=== PATIENT | male | born 1940 | race Caucasian/White ===

== ENCOUNTER 2017-12-13 14:04 | Emergency (ER) | payer OTHER, MEDICARE ==
[~2017-12-13] VITALS: Ht 182.9 cm; Wt 88.5 kg
[~2017-12-13 14:04] MED LIST: ATOR-24 PO; DONE5TAB9 PO; DXY100 PO; FRCT/ PO; GLYB5TAB8 PO; HYDR12.55 PO; LISI40TA PO; METF-384 PO; METO-217 PO; NMN5 PO; SERT-234 PO; SITA50TA3 PO; TAMS0.4C38 PO
[2017-12-13 14:13] VITALS: Ht 182.9 cm; Wt 88.5 kg
[2017-12-13] MEDS ORDERED: SODIUM CHLORIDE 0.9% 1000ML 1,000 ML IV SCH (14:30)
--- NOTE | 2017-12-13 14:51 | EMERGENCY ROOM VISIT NOTE ---
History First contact with patient: 14:19 (Alka. Menard MD) First contact with patient: 14:19 (Edinson Hicks M.D.) Chief Complaint: VOMITING Stated Complaint: BACK AND ABDOMINAL PAIN History of Present Illness History was slightly limited due to hardness of hearing and or ?underlying dementia. was able to fill in some additional details. The patient is a 77 year old male who presents to the Emergency Room with complaints of back pain, and vomiting/abdominal pain which started on Wednesday Back pain started secondary to lifting 's wheelchair on Wednesday. Pain felt across anterior abdomen and then low back pain. Denies inability to ambulate, no numbness/weakness/tingling of lower extremity, no saddle paresthesias. Just feeling achy. Some hot and cold sensation intermittently present on anterior side of right thigh- currently absent, Denies trouble with ambulation Vomiting started secondary to migraine on Wednesday, with more than 15 episode on each Wednesday and Wednesday - non bloody. Patient took amitriptyline though PCP has advised against this medication due to increased risk of orthostatic symptoms. Some secondary epigastric pain secondary to vomiting. Last meal was Fridays, inability to keep food down since. No recent falls, no dizziness or lightheadedness. No CP or SOB Diarrhea is a chronic issue, non-bloody. In process of getting colonoscopy scheduled through PCP He otherwise denies fevers/chills, headaches, CP, palpitations, dyspnea, lower extremity swelling, rashes or urinary symptoms. Source of History: patient, spouse/significant other History Limited By: dementia, other (hard of hearing) Onset: 3 days ago Position: abdomen, back (lower) Symptom Intensity: mild Quality: ache Timing: waxes/wanes Modifying Factors (Worsening): exertion Modifying Factors (Relieving): rest Associated Symptoms: + headache, + nausea, + vomiting, + back pain (Alka. Menard MD) Review of Systems See HPI for pertinent positives and negatives. A total of ten systems were reviewed and were otherwise negative. (Alka. Mneard MD) Of note patient's ROS may be limited given prior h/o dementia; however,see HPI for pertinent positives and negatives. A total of ten systems were reviewed and were otherwise negative. (Edinson Hicks M.D.) Past Medical/Surgical History Medical Problems: (1) Anemia (2) BPH (benign prostatic hypertrophy) (3) Coronary artery disease (4) Dementia (5) Diabetes mellitus, type 2 (6) Dyslipidemia (7) Hypertension (8) Migraine Surgical Problems: (1) Status post aortic valve replacement with bioprosthetic valve (2) Status post coronary artery bypass grafting (3) Status post double vessel coronary artery bypass (4) Status post double vessel coronary artery bypass (Edinson Hicks M.D.) Family History Alzheimer's disease BROTHER Cancer BROTHER Heart disease BROTHER Prostate carcinoma FATHER Stroke MOTHER (Alka. Menard MD) Alzheimer's disease BROTHER Cancer BROTHER Heart disease BROTHER Prostate carcinoma FATHER Stroke MOTHER (Edinson Hicks M.D.) Social History Smoking Status: Never Smoker Alcohol Use: none Marital Status: Occupation Status: retired (Alka. Menard MD) Current/Historical Medications Scheduled Atorvastatin (Lipitor), 40 MG PO HS Donepezil HCl (Aricept), 5 MG PO HS Hydrochlorothiazide (Hydrochlorothiazide), 12.5 MG PO DAILY Lisinopril (Zestril), 40 MG PO DAILY Memantine (Namenda), 10 MG PO BIDM Metformin Hcl (Glucophage), 1,000 MG PO BIDM Metoprolol Succinate (Toprol Xl), 50 MG PO DAILY Sertraline (Zoloft), 150 MG PO DAILY Sitagliptin (Januvia), 50 MG PO DAILY Tamsulosin Hcl (Flomax), 0.4 MG PO DAILY Physical Exam Vital Signs Date Time Temp Pulse Resp B/P (MAP) Pulse Ox O2 Delivery O2 Flow Rate FiO2 12/13/17 17:07 67 18 139/99 95 12/13/17 16:18 37.0 70 18 135/79 94 Room Air 12/13/17 14:13 37.3 89 20 150/99 93 Room Air (Edinson Hicks M.D.) Physical Exam GENERAL: alert, well appearing, thin, lying in bed, no acute distress, non- toxic HEAD: Normocephalic, atraumatic. No sinus tenderness. EYES: PERRL, EOMI, normal sclera and conjunctiva OROPHARYNX: No exudate, no erythema, significant post nasal drip. Lips, buccal mucosa, and tongue normal and mucous membranes are tacky. NECK: Supple, no nuchal rigidity, no adenopathy, non-tender LUNGS: No reproducible chest wall tenderness. Clear to auscultation. Normal chest wall mechanics, good air entry. No crepitations, crackles, or wheezes HEART: RRR, S1 and S2 normal, no murmurs appreciated ABDOMEN: Soft, non-tender currently, normo-active bowel sounds, no masses, no rebound or guarding. BACK: Back is symmetrical on inspection, no obvious deformities, no midline tenderness, no CVA tenderness, some low back paraspinal spasms SKIN: Warm, pink, dry. No erythema, rashes, or bruising. EXTREMITIES: Grossly normal. Moving all 4 limbs, strength 5/5. No pitting edema. Calves non tender. NEURO: Alert, Ox3. No focal deficits. Normal sensorium, cranial nerves II-XII grossly intact, normal speech. Strength in upper and lower extremities 5/5 bilaterally. Straight leg raise negative. Sensation in tact bilaterally. PSYCH: Mood and affect appropriate. (Alka. Menard MD) Medical Decision & Procedures ER Provider Diagnostic Interpretation: LUMBAR SPINE 2 OR 3 VIEWS CLINICAL HISTORY: LBP pain COMPARISON STUDY: None FINDINGS: Moderate degenerative disc change throughout the entire lumbar region. Moderate sclerosis of the vertebral endplates with small reactive osteophytes at multiple levels. No evidence for an acute compression deformity. No evidence for subluxation. IMPRESSION: Moderate degenerative disc change. No acute process. (Alka. Menard MD) Laboratory Results 12/13/17 14:43 Red Blood Count 4.50, Mean Corpuscular Volume 89.8, Mean Corpuscular Hemoglobin 30.9, Mean Corpuscular Hemoglobin Concent 34.4, Mean Platelet Volume 9.4, Neutrophils (%) (Auto) 83.8, Lymphocytes (%) (Auto) 8.5, Monocytes (%) (Auto) 7.4, Eosinophils (%) (Auto) 0.0, Basophils (%) (Auto) 0.1, Neutrophils # (Auto) 8.53, Lymphocytes # (Auto) 0.87, Monocytes # (Auto) 0.75, Eosinophils # (Auto) 0.00, Basophils # (Auto) 0.01 12/13/17 14:43 Test 12/13/17 14:43 White Blood Count 10.18 K/uL (4.8-10.8) Red Blood Count 4.50 M/uL (4.7-6.1) Hemoglobin 13.9 g/dL (14.0-18.0) Hematocrit 40.4 % (42-52) Mean Corpuscular Volume 89.8 fL (80-100) Mean Corpuscular Hemoglobin 30.9 pg (25-34) Mean Corpuscular Hemoglobin Concent 34.4 g/dl (32-36) Platelet Count 171 K/uL (130-400) Mean Platelet Volume 9.4 fL (7.4-10.4) Neutrophils (%) (Auto) 83.8 % Lymphocytes (%) (Auto) 8.5 % Monocytes (%) (Auto) 7.4 % Eosinophils (%) (Auto) 0.0 % Basophils (%) (Auto) 0.1 % Neutrophils # (Auto) 8.53 K/uL (1.4-6.5) Lymphocytes # (Auto) 0.87 K/uL (1.2-3.4) Monocytes # (Auto) 0.75 K/uL (0.11-0.59) Eosinophils # (Auto) 0.00 K/uL (0-0.5) Basophils # (Auto) 0.01 K/uL (0-0.2) RDW Standard Deviation 43.4 fL (36.4-46.3) RDW Coefficient of Variation 13.2 % (11.5-14.5) Immature Granulocyte % (Auto) 0.2 % Immature Granulocyte # (Auto) 0.02 K/uL (0.00-0.02) Anion Gap 10.0 mmol/L (3-11) Est Creatinine Clear Calc Drug Dose 59.2 ml/min Estimated GFR () 72.8 Estimated GFR (Non- 62.8 BUN/Creatinine Ratio 15.2 (10-20) Calcium Level 9.4 mg/dl (8.5-10.1) Total Bilirubin 1.0 mg/dl (0.2-1) Aspartate Amino Transf (AST/SGOT) 49 U/L (15-37) Alanine Aminotransferase (ALT/SGPT) 26 U/L (12-78) Alkaline Phosphatase 96 U/L (45-117) Troponin I 0.042 ng/ml (0-0.045) Total Protein 8.0 gm/dl (6.4-8.2) Albumin 4.3 gm/dl (3.4-5.0) Globulin 3.7 gm/dl (2.5-4.0) Albumin/Globulin Ratio 1.2 (0.9-2) Lipase 252 U/L (73-393) Laboratory results reviewed by me (Edinson Hicks M.D.) Medications Administered Medications (Trade) Dose Ordered Sig/Rebeca Route Start Time Stop Time Status Last Admin Dose Admin Sodium Chloride 1,000 ml @ 125 mls/hr Q8H IV 12/13/17 14:30 12/13/17 17:28 DC 12/13/17 14:30 125 MLS/HR Morphine Sulfate (MoRPHine SULFATE INJ) 2 mg STK-MED ONCE .ROUTE 12/13/17 15:13 12/13/17 15:14 DC 12/13/17 15:18 2 MG Ondansetron HCl (Zofran Inj) 4 mg STK-MED ONCE .ROUTE 12/13/17 15:14 12/13/17 15:15 DC 12/13/17 15:18 4 MG (Edinson Hicks M.D.) ECG Indication: vomiting Rate (beats per minute): 72 Rhythm: sinus with SA Findings: Q waves (Inferior), RBBB, T-wave inversion (V2) Change: no significant change Change: Sinus rhythm with marked sinus arrhythmia Left axis deviation Right bundle branch block Inferior infarct , age undetermined. When compared with ECG of 03-SEP-2016 06:37 , inferior infarct is now present T wave amplitude has increased in Lateral leads with t-wave inversion in lead II , Abnormal ECG HR 72 (Alka. Menard MD) Change: Patient's electrocardiogram interpreted by me. (Edinson Hicks M.D.) ED Course 14:25 Patient was assessed 14:30 IVF ordered 14:45 Labs and imaging ordered 15:03 IV morphine and IV Zofran ordered 15:25 Patient re-evaluated - states feeling much better (Alka. Menard MD) Medical Decision The patient's care and disposition was discussed with Dr. Hicks, Attending ED Physician. Prior records/ancillary studies reviewed. Triage Nursing notes reviewed. Additional history obtained from the family. The patient's history was concerning for abdominal and back pain and vomiting. Differential diagnosis: Etiologies such as gastroenteritis, food borne illness, infections, appendicitis , diverticulitis, inflammatory bowel disease, obstruction, GI bleed, biliary pathology, musculoskeletal, disc herniation, fracture, aortic disease, metastatic disease, cord compression, discitis, infection, renal colic, gastrointestinal, acute exacerbation of chronic back pain, sciatica, cauda equina, as well as others were entertained. Physical examination findings: As above. Abdominal examination revealed no current tenderness or hernia. Neurological exam was within normal limits. Vital signs reviewed and revealed acceptable values. ER treatment provided: IV hydration 1 L NSS, IV morphine 2mg, IV Zofran 4mg On reassessment the patient felt better. Diagnostics interpretation by me: The labs revealed mild hyponatremia, mild elevation in AST, negative lipase, no leukocytosis Imaging studies: L spine films: No acute process Consultation: The patient was informed about the findings as listed above. All questions were answered and he was pleased with the treatment. Return instructions were outlined and the patient was discharged in stable condition. Outpatient prescription management: Advised for rest, moist heat, gentle stretching, avoidance of heavy lifting, Tylenol or ibuprofen as needed for discomfort Referral: The patient was referred to their primary care physician for follow-up in 2 to 3 days for a recheck of the current condition, and management of chronic issues : migraines and diarrhea. (Alka. Menard MD) Medication Reconcilliation Current Medication List: was personally reviewed by me (Alka. Menard MD) Blood Pressure Screening Patient's blood pressure: Elevated blood pressure Blood pressure disposition: Elevated BP felt to be situational, Referred to PCP (Alka. Menard MD) Impression Primary Impression: Lumbar strain Additional Impression: Migraine Departure Information Dispostion Home / Self-Care Condition GOOD Referrals No Doctor, Assigned (PCP) Patient Instructions [facility], [facility] Resident Tracking Resident Involvement: Resident Care Provided Care Provided: Adult ED (Alka. Menard MD) Resident Involvement: Resident Care Provided Care Provided: Adult ED (Edinson Hicks M.D.) Problem Qualifiers Primary Impression: Lumbar strain Encounter type: initial encounter Qualified Codes: S39.012A - Strain of muscle, fascia and tendon of lower back, initial encounter Additional Impression: Migraine Migraine type: unspecified Status migrainosus presence: without status migrainosus Intractability: not intractable Qualified Codes: G43.909 - Migraine, unspecified, not intractable, without status migrainosus
[2017-12-13 14:52] LABS: BASO % 0.1 %; BASO ABS # 0.01 K/uL (0-0.2); HEMATOCRIT 40.4 % (42-52); HEMOGLOBIN 13.9 g/dL (14.0-18.0); IG# 0.02 K/uL (0.00-0.02); LYMPH % 8.5 %; LYMPH ABS # 0.87 K/uL (1.2-3.4); MEAN CELL VOLUME 89.8 fL (80-100); MEAN CORPUSCULAR HEMOGLOBIN 30.9 pg (25-34); MEAN CORPUSCULAR HGB CONC 34.4 g/dl (32-36); MEAN PLATELET VOLUME 9.4 fL (7.4-10.4); MONO % 7.4 %; MONO ABS # 0.75 K/uL (0.11-0.59); NEUT % 83.8 %; NEUT ABS # 8.53 K/uL (1.4-6.5); PLATELET COUNT 171 K/uL (130-400); RED CELL DISTRIBUTION WIDTH CV 13.2 % (11.5-14.5); RED CELL DISTRIBUTION WIDTH SD 43.4 fL (36.4-46.3); WHITE BLOOD COUNT 10.18 K/uL (4.8-10.8)
[2017-12-13] MEDS ORDERED: MoRPHine SULFATE 2 MG/ML CARP IV STA (15:03)
[2017-12-13] MEDS ORDERED: ONDANSETRON INJ 2 MG/ML 2 ML VIAL IV STA (15:03)
[2017-12-13 15:12] LABS: ALBUMIN 4.3 gm/dl (3.4-5.0); CALCIUM 9.4 mg/dl (8.5-10.1); CREATININE 1.11 mg/dl (0.60-1.40); POTASSIUM 3.8 mmol/L (3.5-5.1)
[2017-12-13] MEDS ORDERED: MoRPHine SULFATE 2 MG/ML CARP ONE (15:13)
[2017-12-13] MEDS ORDERED: ONDANSETRON INJ 2 MG/ML 2 ML VIAL ONE (15:14)
--- NOTE | 2017-12-13 15:49 | EMERGENCY ROOM VISIT NOTE ---
ED Visit Note First contact with patient: 14:19 The patient was seen and examined with Dr. Menard. I agree with the history, physical and findings. Please see the note for disposition and details. ECG interpreted by me. It showed a sinus rhythm with sinus arrhythmias at 72. There is a t-wave inversion in lead II, left axis deviation, and a RBBB. These findings are unchanged when compared to an ECG taken on 03 Sep 2016.
--- NOTE | 2017-12-13 16:13 | DIAGNOSTIC IMAGING REPORT ---
LUMBAR SPINE 2 OR 3 VIEWS CLINICAL HISTORY: LBP pain COMPARISON STUDY: None FINDINGS: Moderate degenerative disc change throughout the entire lumbar region. Moderate sclerosis of the vertebral endplates with small reactive osteophytes at multiple levels. No evidence for an acute compression deformity. No evidence for subluxation. IMPRESSION: Moderate degenerative disc change. No acute process. The above report was generated using voice recognition software. It may contain grammatical, syntax or spelling errors. Electronically signed by: Chi Cobb M.D. 12/13/2017 4:12 PM Dictated Date/Time: 12/13/2017 4:11 PM
[2017-12-13 16:18] VITALS: TEMP 37
[2017-12-13 17:07] VITALS: BP 139/99; PULSE 67; O2SAT 95
[2017-12-16 16:33] LABS: ISTAT CREATININE 0.9 mg/dl (0.6-1.3); ISTAT IONIZED CALCIUM 1.15 mmol/l (1.12-1.32); ISTAT POTASSIUM 3.9 mEq/L (3.3-5.0)
== END 2017-12-13 17:08 | disposition home or self-care (01) ==
LOC: C.EDB 14:06 → C.EDC 17:08
DX: S39.012A Strain of muscle, fascia and tendon of lower back, initial encounter (principal); X50.0XXA Overexertion from strenuous movement or load, initial encounter; G43.909 Migraine, unspecified, not intractable, without status migrainosus; R19.7 Diarrhea, unspecified; F03.90 Unspecified dementia, unspecified severity, without behavioral disturbance, psychotic disturbance, mood disturbance, and anxiety; H91.90 Unspecified hearing loss, unspecified ear; D64.9 Anemia, unspecified; N40.0 Benign prostatic hyperplasia without lower urinary tract symptoms; I25.10 Atherosclerotic heart disease of native coronary artery without angina pectoris; E11.9 Type 2 diabetes mellitus without complications; E78.5 Hyperlipidemia, unspecified; I10 Essential (primary) hypertension; I45.10 Unspecified right bundle-branch block; Z95.1 Presence of aortocoronary bypass graft; Z95.2 Presence of prosthetic heart valve; Z79.84 Long term (current) use of oral hypoglycemic drugs; Z81.8 Family history of other mental and behavioral disorders; Z80.42 Family history of malignant neoplasm of prostate; Z82.3 Family history of stroke